=== PATIENT | female | born 1930 | race Caucasian/White ===

== ENCOUNTER 2017-06-06 09:53 | Observation (INO) | payer MEDICARE, BC ==
[~2017-06-06] VITALS: Ht 160 cm; Wt 73.6 kg
[~2017-06-06 09:53] MED LIST: CALCITONIN; CALCIUM600 M1 OR; COZAAR100 MG OR; FAMOTIDINE20 M1 OR; FLOVENT HFA44 MCG IN; OMEGA 31000 MG OR; PRILOSEC20 MG OR; SIMVASTATIN40 MG OR; XOPENEX0.63 MG IN
--- NOTE | 2017-06-06 10:22 | NUR ---
PT AMBULATED TO ROOM 6 WITH A STEADY GAIT.
[2017-06-06] MEDS ORDERED: ADVAIR DISK1 IN (10:36)
[2017-06-06] MEDS ORDERED: SPIRIVA RE1.25 MCG/A (10:37)
[2017-06-06] MEDS ORDERED: RANITIDINE150 M1 PO (10:39)
[2017-06-06] MEDS ORDERED: LASIX 20 MG TAB20 MG PO (10:40)
[2017-06-06 10:55] LABS: HEMATOCRIT 38.3 % (37.0-47.0); HEMOGLOBIN 12.2 g/dl (12.0-16.0); IMMATURE GRANULOCYTES 0.5 % (0.0-1.0); MEAN CELL VOLUME 109.7 fL CALC (80.0-100.0); MEAN CORPUSCULAR HGB CONC 31.9 g/L CALC (32.0-36.0); NEUT# 5.3 thou/uL (2.00-7.15); RED BLOOD COUNT 3.49 mill/uL (4.20-5.60); RED CELL DISTRI WIDTH 13.9 % (11.5-15.5)
--- NOTE | 2017-06-06 11:20 | NUR ---
vomitied 50ml bile colored emesis just prior to zofran being given. resting with hob elevated.
[2017-06-06 11:25] LABS: INFLUENZA A POSITIVE (NONE DETECT); INFLUENZA B NONE DETECTED (NONE DETECT)
[2017-06-06 11:27] LABS: BILIRUBIN, TOTAL 0.6 mg/dL (0.0-1.4); CREATININE 1.1 mg/dL (0.5-1.0)
[2017-06-06 11:29] LABS: ALBUMIN 4.5 g/dL (3.2-5.0); TOTAL PROTEIN 7.2 g/dL (6.3-8.2)
--- NOTE | 2017-06-06 12:15 | NUR ---
PATIENT HAD 50 ML OF BILE COLORED EMESIS PRIOR TO GIVING REGLAN. O2 APPLIED AT 2L/MIN VIA NASAL CANNULA FOR O2 AT OF 86, INCREASES TO 95% ON O2. REPORTS HAVING O2 FOR HOME USE 2L/MIN DURING THE NIGHT.
--- NOTE | 2017-06-06 13:31 | NUR ---
PATIENT RESTING ON STRETCHER RESPIRATIONS EVEN AND UNLABORED. WHEEZING TO LEFT LOWER LOBE. VVS. FAMILY AT BEDSIDE WILL CONTINUE TO MONITOR.
--- NOTE | 2017-06-06 13:35 | NUR ---
MD AT BEDSIDE TO DISCUSS RESULTS.
--- NOTE | 2017-06-06 13:37 | NUR ---
SBAR PRINTED TO FLOOR
--- NOTE | 2017-06-06 14:03 | NUR ---
ATTEMPT MADE TO CALL REPORT, SPOKE TO MIKHAIL. WILL CALL BACK.
--- NOTE | 2017-06-06 14:25 | NUR ---
PATIENT TRANSPORTED TO [facility] WITH TELE AND O2 AT 2L/MIN VIA STRETCHER. BEDSIDE REPORT GIVEN TO NEAL CORRIGAN. CARE RELINQUISHED.
--- NOTE | 2017-06-06 14:30 | NUR ---
PT ARRIVED FROM ER VIA STRETCHER ACCOMPANIED BY STAFF., IV SITE IS FREE FROM REDNESS OR EDEMA. TELE MONITOR IN PLACE.
[2017-06-06 14:37] VITALS: BP 178/83
--- NOTE | 2017-06-06 14:40 | NUR ---
ASSESSMENT IS COMPLETED: IV SITE IS FREE FROM REDNESS OR EDEMA. NO DISTRESS NOTED. SKIN IS INTACT. BREATH SOUNDS ARE WHEEZING, PT HAS A NON PRODUCTIVE COUGH. CONTINUE TO OBSERVE AND MONITOR.
[2017-06-06 16:00] VITALS: BP 160/63
--- NOTE | 2017-06-06 18:33 | NUR ---
PT IS SITTING UP IN BED WITH FAMILY IN THE ROOM;. IV SITE IS FREE FROM REDNESS OR EDEMA. HAS BEEN RESTING THIS AFTERNOON. CONTINUE TO OBSERVE AND MONITOR.
--- NOTE | 2017-06-06 20:00 | NUR ---
PATIENT RESTING IN BED AT THIS TIME WITH O2 VIA NASALK CANNULA IN PLACE. AWAKE ALERT AND ORIENTED WITH FAMILY AT BEDSIDE. MANY QUESTIONS ABOUT PLAN OF CARE ANSWERED. PATIENT WITH NON-PRODUCTIVE COUGH-FINANCIAL EXAMINER NOTIFIED AND WILL ENTER ORDER FOR COUGH MEDS. IV SITE TO LEFT AC-SITE APPEARS HEALTHY AT THIS TIME. TELE MONITORING DEVICE IN PLACE. URINE SPEC OBTAINED AND SENT TO LAB. SAFETY PRECAUTIONS REINFORCED.CALL LIGHT IN REACH. WILL CONT TO MONITOR
[2017-06-06 20:27] VITALS: BP 131/58; BP 98/73
[2017-06-06 20:51] LABS: URINE BILIRUBIN - DIPSTICK NEGATIVE (NEGATIVE); URINE BLOOD DIPSTICK TRACE-INTACT (NEGATIVE); URINE CLARITY SL CLOUDY; URINE COLOR YELLOW; URINE GLUCOSE - DIPSTICK NEGATIVE (NEGATIVE); URINE KETONE TRACE mg/dL (NEGATIVE); URINE LEUK ESTERASE NEGATIVE (NEGATIVE); URINE NITRITE - DIPSTICK POSITIVE (Negative); URINE PH 5.5 (4.5-8.0); URINE PROTEIN - DIPSTICK 30 mg/dL (NEG-TRACE); URINE SPECIFIC GRAVITY >=1.030; URINE UROBILINOGEN - DIPSTICK 0.2 E.U./dL (0.2)
[2017-06-06 20:56] LABS: URINE BACTERIA MANY hpf; URINE RBC 0-2 RBC/hpf (0-5); URINE SQUAMOUS EPITHELIAL CELL FEW EPI/hpf (0-FEW)
--- NOTE | 2017-06-07 00:09 | NUR ---
APPEARS SLEEPING AT THIS TIME WITH HOB ELEVATED AND POSITIONED ON HER LEFT SIDE. CALL LIGHT IN REACH. WILL CONT TO MONITOR.
[2017-06-07 00:22] VITALS: BP 130/70
--- NOTE | 2017-06-07 04:11 | NUR ---
APPEARS SLEEPING AT THIS TIME POSITIONED ON HER SIDE WITH O2 VIA NASAL CANNULA IN PLACE. CALL LIGHT IN REACH. WILL CONT TO MONITOR.
[2017-06-07 05:20] VITALS: BP 131/66
[2017-06-07 06:13] LABS: HEMOGLOBIN 10.9 g/dl (12.0-16.0); IMMATURE GRANULOCYTES 0.5 % (0.0-1.0); MEAN CELL VOLUME 107.9 fL CALC (80.0-100.0); MEAN CORPUSCULAR HGB 34.6 pG CALC (26.0-32.0); MEAN CORPUSCULAR HGB CONC 32.1 g/L CALC (32.0-36.0); NEUT# 7.76 thou/uL (2.00-7.15); RED BLOOD COUNT 3.15 mill/uL (4.20-5.60); RED CELL DISTRI WIDTH 14.1 % (11.5-15.5)
[2017-06-07 06:32] LABS: CREATININE 1.1 mg/dL (0.5-1.0); POTASSIUM 4.6 mmol/l (3.5-5.1)
[2017-06-07 08:00] VITALS: BP 165/69
--- NOTE | 2017-06-07 08:00 | NUR ---
ASSESSMENT IS COMPLETED: PT IS RELAXING IN BED HAS A COUGH,. NO DISTRESS NOTED. IV SITE IS FREE FROM REDNESS OR EDEMA. HR IS REG, PULSES ARE STRONG X4, ABD IS SOFT WITH ACTIVE BS, IV SITE IS FREE FROM REDNESS OR EDEMA. CONTINUE TO OBSERVE AND MONITOR
[2017-06-07 11:00] VITALS: BP 126/58
--- NOTE | 2017-06-07 12:15 | NUR ---
PT IS RELAXING IN BED VISITING WITH FAMILY. NO DISTRESS NOTED. IV SITE IS FREE FROM REDNESS OR EDEMA.
[2017-06-07] MEDS ORDERED: ROBITUSSIN AC10 ML PO (12:34)
[2017-06-07] MEDS ORDERED: TAMIFLU30 MG PO (12:34)
[2017-06-07] MEDS ORDERED: PREDNISONE10 MG PO (12:34)
[2017-06-07] MEDS ORDERED: Levaquin PO (12:34)
--- NOTE | 2017-06-07 14:05 | NUR ---
PT ABLE TO WALK IN THE [place], AROUND THE DESK AND TO HUSBANDS ROOM. WHEN RETURNED TO THE BED THEN HAD SOME PAIN ON THE CHEST. INFORMED NEVA MUNOZ. BP IS HIGH DUE TO AMBULATION. NO SOB CONTINUE TO OBSERVE AND MONITOR,.
[2017-06-07] MEDS ORDERED: DUONEB IN (14:30)
[2017-06-07 15:01] VITALS: BP 133/56
--- NOTE | 2017-06-07 15:12 | NUR ---
IV SITE DISCONTINUED CATHETER INTACT. NO REDNESS OR EDEMA. DISCHARGE INSTRUCTIONS GIVEN AND VERBALIZED UNDERSTANDING, Discharge instructions given. Patient verbalizes understanding of same. Discharged in stable condition via Wheelchair to Home with family. All belongings sent with pt.
== END 2017-06-07 15:12 | disposition home or self-care (01) ==
LOC: ED 09:53 → ED-I 13:19 → ED 13:48 → MS2 13:49
PROVIDERS: Emergency Medicine; Nurse Practitioner Family; ADMIT Internal Medicine; ATTEND Internal Medicine
DX: J10.1 Influenza due to other identified influenza virus with other respiratory manifestations (principal); J44.1 Chronic obstructive pulmonary disease with (acute) exacerbation; N39.0 Urinary tract infection, site not specified; I10 Essential (primary) hypertension; K21.9 Gastro-esophageal reflux disease without esophagitis; F17.210 Nicotine dependence, cigarettes, uncomplicated; R09.02 Hypoxemia; Z99.81 Dependence on supplemental oxygen; Z85.038 Personal history of other malignant neoplasm of large intestine
CPT/HCPCS: S0164